=== PATIENT | male | born 1945 | race Caucasian/White ===

== ENCOUNTER 2017-08-27 14:19 | Outpatient (CLI) | payer MEDICARE, BC ==
[~2017-08-27 14:19] MED LIST: ASPIR-LOW81 MG PO; ASPIR-LOX325 MG PO; ATENOLOL25 MG PO; CATAPRES 0.1MG0.1 MG PO; FISH OIL1 IU PO; FOSINOPRIL SODI10 MG PO; GLYBURIDE MICRON3 MG PO; LEVITRA PO; LEVOTHYROXINE0.05 M1 PO; MICRO-K10 MEQ PO; NIFEDIPINE ER60 MG PO; ZOCOR80 MG PO; ZOLOFT50 MG PO
[2017-08-27 14:39] VITALS: BP 149/72; PULSE 81; TEMP 98
[2017-08-27 14:51] LABS: BASO % 0.6 % (0.0-2.0); EOS # 0.2 (0.0-0.7); EOS % 3.5 % (0-4.0); GRAN # 4.9 (1.4-6.5); GRAN % 71.2 % (42.2-75.2); HEMATOCRIT 25.4 % (42.0-52.0); HEMOGLOBIN 8.7 g/dl (13.5-18.0); LYMPH # 1.1 (1.2-3.4); MEAN CELL VOLUME 97 fl (80.0-100.0); MEAN CORPUSCULAR HEMOGLOBIN 33 pg (27.0-31.0); MEAN CORPUSCULAR HGB CONC 34 g/dl (33.0-37.0); MEAN PLATELET VOLUME 9.5 fl (7.4-10.4); MONO # 0.6 (0.1-0.6); MONO % 8.4 % (1.7-9.3); PLATELET COUNT 143 K/mm3 (130-400); RED BLOOD COUNT 2.63 M/mm3 (4.20-5.60); REDCELL DISTRIBUTION WIDTH-CV 13.2 % (11.5-14.5)
[2017-08-27] MEDS ORDERED: ALTACE 10MG TAB10 MG PO (15:20)
[2017-08-27] MEDS ORDERED: SYNTHROID0.112 MG/T PO (15:20)
[2017-08-27] MEDS ORDERED: ZOLOFT 25MG25 MG PO (15:22)
[2017-08-27] MEDS ORDERED: HYTRIN 5MG C5 MG/CAP PO (15:22)
[2017-08-27] MEDS ORDERED: ZYLOPRIM 300MG300 MG PO (15:23)
[2017-08-27] MEDS ORDERED: ZOCOR 80MG80 MG PO (15:23)
[2017-08-27] MEDS ORDERED: ALDACTONE 25MG25 M1 PO (15:24)
[2017-08-27] MEDS ORDERED: K-TAB10 PO (15:26)
[2017-08-27] MEDS ORDERED: ADALAT CC60 MG PO (15:27)
== END 2017-08-27 16:07 | disposition home or self-care (01) ==
LOC: EUO 14:19
PROVIDERS: Internal Medicine
DX: N18.5 Chronic kidney disease, stage 5 (principal); D63.1 Anemia in chronic kidney disease; Z80.42 Family history of malignant neoplasm of prostate; Z80.0 Family history of malignant neoplasm of digestive organs; F17.220 Nicotine dependence, chewing tobacco, uncomplicated
CPT/HCPCS: J0881

== ENCOUNTER → 2017-10-08 | Outpatient (CLI) | payer MEDICARE, BC ==
[~2017-10-08] MED LIST changes: +ADALAT CC60 MG PO; +ALDACTONE 25MG25 M1 PO; +ALTACE 10MG TAB10 MG PO; +HYTRIN 5MG C5 MG/CAP PO; +K-TAB10 PO; +SYNTHROID0.112 MG/T PO; +ZOCOR 80MG80 MG PO; +ZOLOFT 25MG25 MG PO; +ZYLOPRIM 300MG300 MG PO
== END ==
LOC: COL.VAS 08:57
DX: N18.5 Chronic kidney disease, stage 5 (principal)
CPT/HCPCS: G0365

== ENCOUNTER 2017-10-27 13:00 | Outpatient (RCR) | payer MEDICARE, BC ==
[2017-10-06 15:36] VITALS: BP 135/77; PULSE 64; TEMP 97.7
[2017-10-13 13:19] VITALS: BP 143/70; PULSE 52; TEMP 97.8
[2017-10-20 13:02] VITALS: BP 147/77; PULSE 57; TEMP 97.9
[~2017-10-27] VITALS: Ht 193 cm; Wt 91.1 kg
[2017-10-27 14:00] VITALS: BP 156/72; PULSE 59; TEMP 97.7
== END 2017-10-27 14:45 | disposition home or self-care (01) ==
LOC: EUO 13:00
DX: N18.5 Chronic kidney disease, stage 5 (principal); D63.1 Anemia in chronic kidney disease
CPT/HCPCS: J0881; J2916

== ENCOUNTER 2017-11-24 13:13 | Outpatient (CLI) | payer MEDICARE, BC ==
[~2017-11-24] VITALS: Ht 193 cm; Wt 89.0 kg
[2017-11-24 13:24] VITALS: BP 153/78; PULSE 58; TEMP 97.7
== END 2017-11-24 14:05 | disposition home or self-care (01) ==
LOC: EUO 13:13
DX: N18.5 Chronic kidney disease, stage 5 (principal); D63.1 Anemia in chronic kidney disease
CPT/HCPCS: J0881

== ENCOUNTER 2017-12-22 13:09 | Outpatient (CLI) | payer MEDICARE, BC ==
[~2017-12-22] VITALS: Ht 193 cm; Wt 96.0 kg
[2017-12-22 14:01] VITALS: BP 163/63; PULSE 72; TEMP 98.2
== END 2017-12-22 14:05 | disposition home or self-care (01) ==
LOC: EUO 13:09
DX: N18.5 Chronic kidney disease, stage 5 (principal); D63.1 Anemia in chronic kidney disease
CPT/HCPCS: J0881

== ENCOUNTER 2018-01-27 13:20 | Outpatient (CLI) | payer MEDICARE, BC ==
[2018-01-27 13:38] VITALS: BP 137/64; PULSE 65; TEMP 97.6
== END 2018-01-27 14:05 | disposition home or self-care (01) ==
LOC: EUO 13:20
DX: N18.5 Chronic kidney disease, stage 5 (principal); D63.1 Anemia in chronic kidney disease
CPT/HCPCS: J0881

== ENCOUNTER 2018-03-31 06:33 | Day surgery (SDC) | payer MEDICARE, BC ==
[~2018-03-31] VITALS: Ht 193 cm; Wt 87.0 kg
[~2018-03-31 06:33] MED LIST changes: +ALTACE 5MG5 MG PO; +ASPIRIN 81M81 MG/TA2 PO; +ATARAX 25MG25 MG/TAB PO; +BUMEX2 MG PO; +CORDARONE200 MG/TAB PO; +COREG 25MG25 MG/TAB PO; +COUMADIN 1MG1 MG/TAB PO; +COUMADIN 5MG5 MG/TAB PO; +HYTRIN 1MG C1 MG/CAP PO; +IMDUR 30MG30 MG/TAB PO; +LOPRESSOR 225 MG/TAB PO; +MASON NATURAL2000 IU PO; +NATURAL IRON65 MG PO; +NEURONTIN100 MG/CAP PO; +OMEGA-3 1000 MG1 CAP PO; +OSCAL 500 TAB500 MG PO; +ROLAIDS 675 MG-1 CT2 PO; +ZAROXOLYN 2.52.5 MG PO; +ZAROXOLYN5 MG PO; +ZOCOR 20MG20 MG PO
[2018-03-31 07:18] LABS: POTASSIUM 5.1 mmol/L (3.4-5.0)
[2018-03-31 07:19] LABS: INR 2.1 (0.8-3.0); PROTHROMBIN TIME 23.4 SECONDS (9.7-12.8)
[2018-03-31 07:52] LABS: THYROID STIMULATING HORMONE 6.63 uIU/mL (0.465-4.680)
[2018-03-31 08:18] VITALS: BP 128/81; PULSE 61; TEMP 97.5
[2018-03-31] MEDS ORDERED: LEVOXYL0.125 MG PO (08:26)
[2018-03-31] MEDS ORDERED: CALPHRON667 MG PO (08:30)
[2018-03-31] MEDS ORDERED: LOPRESSOR 225 MG/TAB PO (08:31)
[2018-03-31] MEDS ORDERED: COUMADIN 22.5 MG/TAB PO (08:32)
[2018-03-31] MEDS ORDERED: CEPHALEXIN500 M1 PO (09:40)
[2018-03-31 10:14] VITALS: BP 153/69; PULSE 117; TEMP 97.6
== END 2018-03-31 10:17 | disposition home or self-care (01) ==
LOC: COL.CAR 06:33
PROVIDERS: Internal Medicine Cardiovascular Disease
DX: I48.0 Paroxysmal atrial fibrillation (principal); I42.0 Dilated cardiomyopathy; I34.0 Nonrheumatic mitral (valve) insufficiency; I13.2 Hypertensive heart and chronic kidney disease with heart failure and with stage 5 chronic kidney disease, or end stage renal disease; N18.6 End stage renal disease; I50.23 Acute on chronic systolic (congestive) heart failure; I45.4 Nonspecific intraventricular block; Z79.01 Long term (current) use of anticoagulants; Z79.82 Long term (current) use of aspirin; Z87.891 Personal history of nicotine dependence; Z99.2 Dependence on renal dialysis

== ENCOUNTER 2018-05-04 22:34 | Inpatient (IN) | payer MEDICARE, BC ==
[~2018-05-04] VITALS: Ht 193 cm; Wt 92.8 kg
[~2018-05-04 22:34] MED LIST changes: +CALPHRON667 MG PO; +CEPHALEXIN500 M1 PO; +COUMADIN 22.5 MG/TAB PO; +LEVOXYL0.125 MG PO
[2018-05-04 23:25] LABS: BASO % 0.6 % (0.0-2.0); EOS # 0.2 (0.0-0.7); EOS % 2.4 % (0-4.0); GRAN # 4.8 (1.4-6.5); GRAN % 73.2 % (42.2-75.2); HEMATOCRIT 31.5 % (42.0-52.0); HEMOGLOBIN 10.3 g/dl (13.5-18.0); LYMPH # 0.9 (1.2-3.4); LYMPH % 13.7 % (20.0-51.0); MEAN CELL VOLUME 98 fl (80.0-100.0); MEAN CORPUSCULAR HEMOGLOBIN 32 pg (27.0-31.0); MEAN CORPUSCULAR HGB CONC 33 g/dl (33.0-37.0); MEAN PLATELET VOLUME 9.8 fl (7.4-10.4); MONO # 0.7 (0.1-0.6); MONO % 9.8 % (1.7-9.3); PLATELET COUNT 159 K/mm3 (130-400); RED BLOOD COUNT 3.23 M/mm3 (4.20-5.60); REDCELL DISTRIBUTION WIDTH-CV 19.5 % (11.5-14.5)
[2018-05-04 23:30] LABS: INR 1.6 (0.8-3.0); PROTHROMBIN TIME 18.1 SECONDS (9.7-12.8)
[2018-05-04 23:35] LABS: ALBUMIN 3.5 gm/dL (3.5-5.0); BILIRUBIN,TOTAL 0.9 mg/dL (0.0-1.0); CALCIUM 8.9 mg/dL (8.4-10.2); CREATININE, serum 3.17 mg/dL (0.66-1.25); POTASSIUM 4.2 mmol/L (3.4-5.0); TOTAL PROTEIN 6.9 gm/dL (6.4-8.2)
[2018-05-04 23:47] LABS: TROPONIN-I 0.061 ng/mL (0.000-0.034)
[2018-05-04] MEDS ORDERED: ELIQUIS 2.5 PO (23:57)
[2018-05-04] MEDS ORDERED: REGLAN 5MG T5 MG/TAB PO (23:57)
[2018-05-04] MEDS ORDERED: PROTONIX 40MG T40 MG PO (23:57)
[2018-05-05] VITALS (7 sets, daily range): BP systolic 133–164; BP diastolic 68–94; PULSE 52–82; TEMP 97.6–98.6
[2018-05-05 07:26] LABS: BASO # 0.1 (0.0-0.2); BASO % 0.7 % (0.0-2.0); EOS # 0.1 (0.0-0.7); EOS % 1.1 % (0-4.0); GRAN # 4.6 (1.4-6.5); GRAN % 61.3 % (42.2-75.2); HEMOGLOBIN 10.4 g/dl (13.5-18.0); LYMPH # 1.9 (1.2-3.4); MEAN CELL VOLUME 100 fl (80.0-100.0); MEAN CORPUSCULAR HEMOGLOBIN 31 pg (27.0-31.0); MEAN CORPUSCULAR HGB CONC 31 g/dl (33.0-37.0); MEAN PLATELET VOLUME 10.4 fl (7.4-10.4); MONO # 0.9 (0.1-0.6); MONO % 11.6 % (1.7-9.3); PLATELET COUNT 179 K/mm3 (130-400); RED BLOOD COUNT 3.32 M/mm3 (4.20-5.60); REDCELL DISTRIBUTION WIDTH-CV 19.9 % (11.5-14.5)
[2018-05-05 07:30] LABS: ALBUMIN 3.6 gm/dL (3.5-5.0); BILIRUBIN,TOTAL 0.8 mg/dL (0.0-1.0); CALCIUM 8.9 mg/dL (8.4-10.2); CREATININE, serum 3.59 mg/dL (0.66-1.25); POTASSIUM 4.5 mmol/L (3.4-5.0); TOTAL PROTEIN 6.9 gm/dL (6.4-8.2)
[2018-05-05 07:31] LABS: HEMATOCRIT 33.1 % (42.0-52.0)
[2018-05-05 07:54] LABS: TROPONIN-I 6 HR POST INITIAL 0.175 ng/mL (0.000-0.034)
[2018-05-06 05:21] VITALS: BP 157/91; PULSE 71; TEMP 98.6
[2018-05-06 07:05] LABS: BASO # 0.1 (0.0-0.2); BASO % 0.6 % (0.0-2.0); EOS # 0.4 (0.0-0.7); EOS % 5.3 % (0-4.0); GRAN # 4.6 (1.4-6.5); GRAN % 58.4 % (42.2-75.2); HEMOGLOBIN 10.8 g/dl (13.5-18.0); LYMPH % 24.5 % (20.0-51.0); MEAN CELL VOLUME 99 fl (80.0-100.0); MEAN CORPUSCULAR HEMOGLOBIN 32 pg (27.0-31.0); MEAN CORPUSCULAR HGB CONC 32 g/dl (33.0-37.0); MEAN PLATELET VOLUME 10.3 fl (7.4-10.4); MONO # 0.9 (0.1-0.6); MONO % 10.8 % (1.7-9.3); PLATELET COUNT 172 K/mm3 (130-400); RED BLOOD COUNT 3.42 M/mm3 (4.20-5.60); REDCELL DISTRIBUTION WIDTH-CV 19.8 % (11.5-14.5)
[2018-05-06 07:11] LABS: HEMATOCRIT 33.7 % (42.0-52.0)
[2018-05-06 07:13] LABS: CALCIUM 8.9 mg/dL (8.4-10.2); CREATININE, serum 3.47 mg/dL (0.66-1.25); POTASSIUM 4.3 mmol/L (3.4-5.0)
[2018-05-06 07:23] LABS: TROPONIN-I 0.222 ng/mL (0.000-0.034)
[2018-05-06 08:06] VITALS: BP 141/80; PULSE 77; TEMP 98
[2018-05-06] MEDS ORDERED: ELIQUIS 2.5 PO (11:07)
[2018-05-06 11:58] VITALS: BP 132/88; PULSE 66; TEMP 98
== END 2018-05-06 17:35 | disposition home or self-care (01) | DRG 280 ==
LOC: COL.ER 22:34 → MEDICAL 05-05 00:17 → COL.ER 05-05 00:17 → MEDICAL 05-05 01:20
PROVIDERS: Emergency Medicine; Internal Medicine
PROC: 5A1D70Z Performance of Urinary Filtration, Intermittent, Less than 6 Hours Per Day (ICD-10-PCS; principal; 2018-05-05)
PROC: 5A1D70Z Performance of Urinary Filtration, Intermittent, Less than 6 Hours Per Day (ICD-10-PCS; 2018-05-06)
DX: I13.2 Hypertensive heart and chronic kidney disease with heart failure and with stage 5 chronic kidney disease, or end stage renal disease (principal); I50.23 Acute on chronic systolic (congestive) heart failure; I21.A1 Myocardial infarction type 2; N18.6 End stage renal disease; E11.22 Type 2 diabetes mellitus with diabetic chronic kidney disease; D63.1 Anemia in chronic kidney disease; I48.0 Paroxysmal atrial fibrillation; E11.21 Type 2 diabetes mellitus with diabetic nephropathy; Z79.01 Long term (current) use of anticoagulants

== ENCOUNTER 2018-05-10 08:54 | Day surgery (SDC) | payer MEDICARE, BC ==
[2018-05-10] VITALS (11 sets, daily range): BP systolic 117–154; BP diastolic 60–85; PULSE 56–62; TEMP 97.3–97.6
[~2018-05-10] VITALS: Ht 193 cm; Wt 83.0 kg
[~2018-05-10 08:54] MED LIST changes: +ELIQUIS 2.5 PO; +PROTONIX 40MG T40 MG PO; +REGLAN 5MG T5 MG/TAB PO
[2018-05-10 09:59] LABS: HEMOGLOBIN 11.1 g/dl (13.5-18.0); MEAN CELL VOLUME 100 fl (80.0-100.0); MEAN CORPUSCULAR HEMOGLOBIN 32 pg (27.0-31.0); MEAN CORPUSCULAR HGB CONC 32 g/dl (33.0-37.0); MEAN PLATELET VOLUME 10.5 fl (7.4-10.4); PLATELET COUNT 186 K/mm3 (130-400); RED BLOOD COUNT 3.48 M/mm3 (4.20-5.60); REDCELL DISTRIBUTION WIDTH-CV 20.3 % (11.5-14.5)
[2018-05-10 10:04] LABS: HEMATOCRIT 34.7 % (42.0-52.0)
[2018-05-10 10:06] LABS: INR 1.3 (0.8-3.0); PROTHROMBIN TIME 15.2 SECONDS (9.7-12.8)
[2018-05-10 10:12] LABS: CALCIUM 9.4 mg/dL (8.4-10.2); POTASSIUM 4.6 mmol/L (3.4-5.0)
[2018-05-10 10:17] LABS: CREATININE, serum 4.34 mg/dL (0.66-1.25)
== END 2018-05-10 16:00 | disposition home or self-care (01) ==
LOC: COL.CAR 08:54
PROVIDERS: Internal Medicine Cardiovascular Disease
DX: I42.8 Other cardiomyopathies (principal); I48.0 Paroxysmal atrial fibrillation; I13.2 Hypertensive heart and chronic kidney disease with heart failure and with stage 5 chronic kidney disease, or end stage renal disease; N18.6 End stage renal disease; E78.5 Hyperlipidemia, unspecified; I50.23 Acute on chronic systolic (congestive) heart failure; I44.7 Left bundle-branch block, unspecified; R94.39 Abnormal result of other cardiovascular function study; I08.1 Rheumatic disorders of both mitral and tricuspid valves; I27.20 Pulmonary hypertension, unspecified; Z79.01 Long term (current) use of anticoagulants; Z79.82 Long term (current) use of aspirin; Z87.891 Personal history of nicotine dependence
CPT/HCPCS: J1644; J2250; J3010; Q9967

== ENCOUNTER 2018-06-08 06:22 | Outpatient (CLI) | payer MEDICARE, BC ==
[~2018-06-08] VITALS: Ht 193.1 cm; Wt 83.8 kg
[2018-06-08] VITALS (10 sets, daily range): BP systolic 120–152; BP diastolic 83–102; PULSE 64–70
== END 2018-06-08 12:38 | disposition home or self-care (01) ==
LOC: COL.CAR 06:22
DX: T82.590A Other mechanical complication of surgically created arteriovenous fistula, initial encounter (principal); I12.0 Hypertensive chronic kidney disease with stage 5 chronic kidney disease or end stage renal disease; E11.22 Type 2 diabetes mellitus with diabetic chronic kidney disease; N18.6 End stage renal disease; I48.91 Unspecified atrial fibrillation; Z99.2 Dependence on renal dialysis
CPT/HCPCS: J1644; J2250; J3010; Q9967

== ENCOUNTER → 2018-09-10 | Outpatient (CLI) | payer MEDICARE, BC | LOC: COL.RAD 15:56 | DX: N18.6 End stage renal disease (principal); I51.7 Cardiomegaly; J18.1 Lobar pneumonia, unspecified organism; R09.89 Other specified symptoms and signs involving the circulatory and respiratory systems; Z99.2 Dependence on renal dialysis ==

== ENCOUNTER → 2018-10-03 | Outpatient (CLI) | payer MEDICARE, BC ==
[~2018-10-03] VITALS: Ht 193.1 cm; Wt 81.2 kg
[2018-10-03 07:38] VITALS: BP 150/73; PULSE 69
--- NOTE | 2018-10-03 07:44 | NUR ---
dc instructions given to .
[2018-10-03 08:08] VITALS: BP 141/66; PULSE 85
== END ==
LOC: COL.RAD 07:15
DX: L98.8 Other specified disorders of the skin and subcutaneous tissue (principal)

== ENCOUNTER → 2020-01-17 | Outpatient (CLI) | payer MEDICARE, BC | LOC: ZCOL.LAB 14:47 | DX: Z20.828 Contact with and (suspected) exposure to other viral communicable diseases (principal) ==

== ENCOUNTER → 2020-08-13 | Outpatient (CLI) | payer MEDICARE, BC | LOC: COL.PUL 10:41 | DX: R06.02 Shortness of breath (principal); T50.904A Poisoning by unspecified drugs, medicaments and biological substances, undetermined, initial encounter ==

== ENCOUNTER → 2020-08-21 | Outpatient (CLI) | payer MEDICARE, BC | LOC: COL.PUL 11:30 | DX: R06.02 Shortness of breath (principal); T50.904A Poisoning by unspecified drugs, medicaments and biological substances, undetermined, initial encounter ==

== ENCOUNTER → 2020-11-06 | Outpatient (CLI) | payer MEDICARE, BC ==
[~2020-11-06] MED LIST changes: +RENVELA800 MG PO; +[UNRECOGNIZED DRUG - OTHER] PO
== END ==
LOC: COL.RAD 07:41
DX: N26.1 Atrophy of kidney (terminal) (principal); N20.0 Calculus of kidney; K76.89 Other specified diseases of liver; Z95.0 Presence of cardiac pacemaker
CPT/HCPCS: Q9967

== ENCOUNTER 2021-01-23 13:00 | Emergency (ER) | payer MEDICARE, BC ==
[~2021-01-23] VITALS: Ht 193 cm; Wt 95.5 kg
[~2021-01-23 13:00] MED LIST changes: +TOPROL XL 25MG25 MG PO
[2021-01-23 13:01] VITALS: BP 174/89; TEMP 98.7
[2021-01-23] MEDS ORDERED: CEPHALEXIN500 M1 PO (14:53)
[2021-01-23 15:21] VITALS: PULSE 60
== END 2021-01-23 15:18 | disposition home or self-care (01) ==
LOC: COL.ER 13:00
DX: S81.811A Laceration without foreign body, right lower leg, initial encounter (principal); S51.011A Laceration without foreign body of right elbow, initial encounter; S81.812A Laceration without foreign body, left lower leg, initial encounter; S51.812A Laceration without foreign body of left forearm, initial encounter; I48.91 Unspecified atrial fibrillation; I12.9 Hypertensive chronic kidney disease with stage 1 through stage 4 chronic kidney disease, or unspecified chronic kidney disease; E11.22 Type 2 diabetes mellitus with diabetic chronic kidney disease; N18.9 Chronic kidney disease, unspecified; Z87.891 Personal history of nicotine dependence; Z79.01 Long term (current) use of anticoagulants; Z99.2 Dependence on renal dialysis; Z23 Encounter for immunization; Z79.899 Other long term (current) drug therapy; W01.0XXA Fall on same level from slipping, tripping and stumbling without subsequent striking against object, initial encounter

== ENCOUNTER 2021-03-06 07:23 | Outpatient (CLI) | payer MEDICARE, BC ==
[~2021-03-06] VITALS: Ht 193.1 cm; Wt 94.6 kg
[2021-03-06 08:21] LABS: MEAN CELL VOLUME 108 fl (80.0-100.0); MEAN CORPUSCULAR HGB CONC 34 g/dl (33.0-37.0); MEAN PLATELET VOLUME 9.3 fl (7.4-10.4); PLATELET COUNT 155 K/mm3 (130-400); REDCELL DISTRIBUTION WIDTH-CV 14.2 % (11.5-14.5)
[2021-03-06 08:24] LABS: HEMOGLOBIN 9.5 g/dl (13.5-18.0); MEAN CORPUSCULAR HEMOGLOBIN 37 pg (27.0-31.0)
[2021-03-06 08:30] LABS: INR 1.3 (0.8-3.0); PROTHROMBIN TIME 14.2 SECONDS (9.7-12.8)
[2021-03-06 08:32] LABS: CALCIUM 9.8 mg/dL (8.4-10.2); CREATININE, serum 5.46 (0.66-1.25); POTASSIUM 4.5 mmol/L (3.4-5.0)
[2021-03-06] MEDS ORDERED: PACERONE200 MG PO (09:02)
[2021-03-06] MEDS ORDERED: ALTACE 10MG TAB10 MG PO (09:08)
[2021-03-06 09:18] VITALS: BP 153/85; PULSE 61; TEMP 98.4
[2021-03-06 09:38] VITALS: BP 129/64; PULSE 60
--- NOTE | 2021-03-06 09:43 | NUR ---
Report from Javy Gordon
[2021-03-06 09:45] VITALS: BP 135/68; PULSE 60
[2021-03-06 10:00] VITALS: BP 143/68; PULSE 60
[2021-03-06 10:15] VITALS: BP 144/72; PULSE 66
[2021-03-06 10:30] VITALS: BP 147/75; PULSE 66
--- NOTE | 2021-03-06 11:15 | NUR ---
Discharge instructions given to pt.Pt verbalizes understanding.INT removed,catheter tip intact.Pt escorted out via wheelchair by this nurse.
== END 2021-03-06 12:43 | disposition home or self-care (01) ==
LOC: COL.RAD 07:23
PROVIDERS: Internal Medicine Cardiovascular Disease
DX: I10 Essential (primary) hypertension (principal); I48.91 Unspecified atrial fibrillation; Z86.79 Personal history of other diseases of the circulatory system
CPT/HCPCS: J2704; J7030

== ENCOUNTER → 2021-03-10 | Outpatient (CLI) | payer MEDICARE, BC ==
[~2021-03-10] MED LIST changes: +FOLIC ACID 11 MG/TA1 PO; +PACERONE200 MG PO; +VITAMIN B1 50 MG PO; +VITAMIN B12 781 TAB PO
== END ==
LOC: COL.RAD 06:42
DX: I50.9 Heart failure, unspecified (principal); J90 Pleural effusion, not elsewhere classified; N20.0 Calculus of kidney; N28.1 Cyst of kidney, acquired; N26.1 Atrophy of kidney (terminal)
CPT/HCPCS: Q9967

== ENCOUNTER 2021-05-06 11:55 | Day surgery (SDC) | payer MEDICARE, BC ==
[~2021-05-06] VITALS: Ht 193 cm; Wt 89.5 kg
[~2021-05-06 11:55] MED LIST changes: -FOLIC ACID 11 MG/TA1 PO; -VITAMIN B1 50 MG PO; -VITAMIN B12 781 TAB PO
[2021-05-06 13:20] VITALS: BP 143/64; PULSE 64; TEMP 98.2
[2021-05-06] MEDS ORDERED: VITAMIN B12 781 TAB PO (13:30)
[2021-05-06] MEDS ORDERED: FOLIC ACID 11 MG/TA1 PO (13:31)
[2021-05-06] MEDS ORDERED: VITAMIN B1 50 MG PO (13:31)
[2021-05-06 13:32] LABS: CALCIUM 9.7 mg/dL (8.4-10.2); CREATININE, serum 5.77 (0.66-1.25); POTASSIUM 4.1 mmol/L (3.4-5.0)
[2021-05-06 16:10] VITALS: BP 148/70; PULSE 66; TEMP 97.6
--- NOTE | 2021-05-06 16:10 | NUR ---
PATIENT BROUGHT DOWN TO BED 1 VIA CART. PLACED ON MONITORS, VITAL SIGNS STABLE. IV INFUSING TO RIGHT HAND. PATIENT DENIES PAIN OR NAUSEA. REQUESTS MUFFIN AND DIET SODA. REMAINS AT BEDSIDE. CALL CORCORAN WITHIN REACH. WILL CONTINUE TO MONITOR.
[2021-05-06 16:25] VITALS: BP 154/64; PULSE 70
--- NOTE | 2021-05-06 16:25 | NUR ---
TOLERATING FOOD AND DRINK WITHOUT DIFFICULTY. WILL CONTINUE TO MONITOR.
[2021-05-06 16:40] VITALS: BP 151/68; PULSE 69
--- NOTE | 2021-05-06 16:40 | NUR ---
PATIENT AMBULATED TO BATHROOM, BLOODY URINE NOTED. PATIENT EDUCATED ON COLOR. VITAL SIGNS STABLE. REPORT GIVEN TO KAREEM LESLIE TO RESUME CARE. DR. ESCALERA CALLED, NO ANSWER. NEEDS TO SEE PATIENT BEFORE DISCHARGE.
--- NOTE | 2021-05-06 17:00 | NUR ---
Received call from Dr. Brown and patient maybe discharged to home.
--- NOTE | 2021-05-06 17:10 | NUR ---
INT needle discontinued and site is free of redness and swelling. Given dismissal instructions and voices understanding of these. Dresses self.
--- NOTE | 2021-05-06 17:15 | NUR ---
Patient dismissed to home driven by spouse and taken to the front door per wheelchair and assisted into car with instruction in hand.
[2021-05-06 18:22] VITALS: BP 148/70; PULSE 66; TEMP 97.6
== END 2021-05-06 17:15 | disposition home or self-care (01) ==
LOC: SDCO 11:55
PROVIDERS: Nurse Anesthetist, Certified Registered
DX: N20.1 Calculus of ureter (principal); R31.0 Gross hematuria; I48.91 Unspecified atrial fibrillation; K21.9 Gastro-esophageal reflux disease without esophagitis; E11.9 Type 2 diabetes mellitus without complications; E78.5 Hyperlipidemia, unspecified; E11.22 Type 2 diabetes mellitus with diabetic chronic kidney disease; E78.00 Pure hypercholesterolemia, unspecified; E07.9 Disorder of thyroid, unspecified; D64.9 Anemia, unspecified; I13.2 Hypertensive heart and chronic kidney disease with heart failure and with stage 5 chronic kidney disease, or end stage renal disease; I50.9 Heart failure, unspecified; M10.9 Gout, unspecified; N18.6 End stage renal disease; F32.9 Major depressive disorder, single episode, unspecified; F41.9 Anxiety disorder, unspecified; Z79.01 Long term (current) use of anticoagulants; Z79.899 Other long term (current) drug therapy; Z95.0 Presence of cardiac pacemaker; Z87.891 Personal history of nicotine dependence; Z90.89 Acquired absence of other organs; Z79.890 Hormone replacement therapy
CPT/HCPCS: C1769; J0690; J2704; J3010; J7030; Q9967

== ENCOUNTER 2021-09-14 12:27 | Inpatient (IN) | payer MEDICARE, BC ==
[~2021-09-14] VITALS: Ht 185.4 cm; Wt 87.9 kg
[~2021-09-14 12:27] MED LIST changes: +FOLIC ACID 11 MG/TA1 PO; +VITAMIN B1 50 MG PO; +VITAMIN B12 781 TAB PO
[2021-09-14 13:29] VITALS: BP 130/64; PULSE 63; TEMP 98.1
[2021-09-14] MEDS ORDERED: ASPIRIN 81M81 MG/TA2 PO (14:16)
[2021-09-14] MEDS ORDERED: REGLAN 5MG T5 MG/TAB PO (14:17)
[2021-09-14] MEDS ORDERED: ALDACTONE 25MG25 M1 PO (14:18)
[2021-09-14] MEDS ORDERED: LASIX 80MG TABL80 MG PO ×2 (14:19→14:20)
[2021-09-14] MEDS ORDERED: PLAVIX 75MG TAB75 MG PO (14:20)
[2021-09-14 14:22] LABS: BASO % 0.7 % (0.0-2.0); EOS # 0.1 K/mm3 (0.0-0.7); EOS % 2.4 % (0.0-4.0); GRAN # 4.1 K/mm3 (1.4-6.5); GRAN % 73.7 % (42.2-75.2); HEMATOCRIT 32.9 % (42.0-52.0); HEMOGLOBIN 10.3 g/dl (13.5-18.0); LYMPH # 0.6 K/mm3 (1.2-3.4); LYMPH % 11.3 % (20.0-51.0); MEAN CELL VOLUME 106 fl (80.0-100.0); MEAN CORPUSCULAR HEMOGLOBIN 33 pg (27-31); MEAN CORPUSCULAR HGB CONC 31 g/dl (33.0-37.0); MEAN PLATELET VOLUME 9.9 fl (7.4-10.4); MONO # 0.6 K/mm3 (0.1-0.6); MONO % 11.7 % (1.7-9.3); PLATELET COUNT 151 K/mm3 (130-400); RED BLOOD COUNT 3.11 M/mm3 (4.20-5.60); REDCELL DISTRIBUTION WIDTH-CV 15.8 % (11.5-14.5)
[2021-09-14 14:32] LABS: INR 1.2 (0.8-3.0); PROTHROMBIN TIME 13.1 SECONDS (9.7-12.8)
[2021-09-14 14:40] LABS: ALBUMIN 3.7 gm/dL (3.4-4.8); BILIRUBIN,TOTAL 0.8 mg/dL (0.2-1.2); CREATININE, serum 2.9 mg/dL (0.72-1.25); POTASSIUM 4.3 mmol/L (3.5-4.5); TOTAL PROTEIN 6.9 gm/dL (6.2-8.1)
[2021-09-14 14:59] LABS: TSH w REFLEX 3.845 uIU/mL (0.350-4.940)
[2021-09-14 15:52] VITALS: BP 129/65; PULSE 68; TEMP 98.2
[2021-09-14 20:38] VITALS: BP 124/68; PULSE 73; TEMP 98.3
[2021-09-15] VITALS (7 sets, daily range): BP systolic 135–156; BP diastolic 70–82; PULSE 71–78; TEMP 97.1–98
[2021-09-15 07:10] LABS: BASO # 0.1 K/mm3 (0.0-0.2); BASO % 0.8 % (0.0-2.0); EOS # 0.1 K/mm3 (0.0-0.7); EOS % 0.7 % (0.0-4.0); GRAN # 7.6 K/mm3 (1.4-6.5); GRAN % 74.9 % (42.2-75.2); HEMATOCRIT 38.7 % (42.0-52.0); LYMPH # 1.3 K/mm3 (1.2-3.4); LYMPH % 12.9 % (20.0-51.0); MEAN CELL VOLUME 108 fl (80.0-100.0); MEAN CORPUSCULAR HEMOGLOBIN 35 pg (27-31); MEAN CORPUSCULAR HGB CONC 32 g/dl (33.0-37.0); MEAN PLATELET VOLUME 10.3 fl (7.4-10.4); MONO # 1.1 K/mm3 (0.1-0.6); MONO % 10.4 % (1.7-9.3); PLATELET COUNT 235 K/mm3 (130-400); RED BLOOD COUNT 3.59 M/mm3 (4.20-5.60); REDCELL DISTRIBUTION WIDTH-CV 16.1 % (11.5-14.5)
[2021-09-15 07:25] LABS: HEMOGLOBIN 12.4 g/dl (13.5-18.0)
[2021-09-15 07:28] LABS: ALBUMIN 4.1 gm/dL (3.4-4.8); CALCIUM 9.9 mg/dL (8.4-10.2); CREATININE, serum 4.45 mg/dL (0.72-1.25); PHOSPHOROUS 3.7 mg/dL (2.3-4.7); POTASSIUM 4.7 mmol/L (3.5-4.5)
[2021-09-16 04:17] VITALS: BP 131/73; PULSE 73; TEMP 97.8
[2021-09-16 06:56] LABS: BASO % 0.4 % (0.0-2.0); EOS % 0.3 % (0.0-4.0); GRAN # 7.2 K/mm3 (1.4-6.5); GRAN % 78.7 % (42.2-75.2); HEMOGLOBIN 11.7 g/dl (13.5-18.0); LYMPH # 0.9 K/mm3 (1.2-3.4); LYMPH % 9.9 % (20.0-51.0); MEAN CELL VOLUME 105 fl (80.0-100.0); MEAN CORPUSCULAR HEMOGLOBIN 34 pg (27-31); MEAN CORPUSCULAR HGB CONC 33 g/dl (33.0-37.0); MEAN PLATELET VOLUME 10.5 fl (7.4-10.4); MONO # 0.9 K/mm3 (0.1-0.6); MONO % 10.2 % (1.7-9.3); PLATELET COUNT 174 K/mm3 (130-400); RED BLOOD COUNT 3.42 M/mm3 (4.20-5.60); REDCELL DISTRIBUTION WIDTH-CV 16.3 % (11.5-14.5)
[2021-09-16 07:19] LABS: ALBUMIN 3.8 gm/dL (3.4-4.8); CALCIUM 9.9 mg/dL (8.4-10.2); CREATININE, serum 5.76 mg/dL (0.72-1.25); POTASSIUM 5.4 mmol/L (3.5-4.5)
[2021-09-16 08:10] VITALS: BP 123/71; PULSE 72; TEMP 97.6
[2021-09-16 08:21] VITALS: BP 119/63; PULSE 71; TEMP 97.7
[2021-09-16 11:46] VITALS: BP 138/78; PULSE 68; TEMP 97.9
[2021-09-16 16:27] VITALS: BP 131/64; PULSE 62; TEMP 97.4
[2021-09-16] MEDS ORDERED: TOPROL XL 25MG25 MG PO (18:02)
[2021-09-16] MEDS ORDERED: ALTACE 2.5MG T2.5 MG PO (18:03)
[2021-09-16] MEDS ORDERED: FLOMAX 0.40.4 MG/CAP PO (18:04)
[2021-09-16 19:30] VITALS: BP 140/71; PULSE 69; TEMP 97.7
[2021-09-17 00:06] VITALS: BP 126/66; PULSE 70; TEMP 97.8
[2021-09-17 03:17] VITALS: BP 135/71; PULSE 58; TEMP 97.8
[2021-09-17 06:09] LABS: BASO # 0.1 K/mm3 (0.0-0.2); BASO % 0.9 % (0.0-2.0); EOS # 0.2 K/mm3 (0.0-0.7); GRAN # 3.9 K/mm3 (1.4-6.5); GRAN % 72.1 % (42.2-75.2); HEMOGLOBIN 10.4 g/dl (13.5-18.0); LYMPH # 0.6 K/mm3 (1.2-3.4); MEAN CELL VOLUME 106 fl (80.0-100.0); MEAN CORPUSCULAR HEMOGLOBIN 34 pg (27-31); MEAN CORPUSCULAR HGB CONC 32 g/dl (33.0-37.0); MEAN PLATELET VOLUME 9.7 fl (7.4-10.4); MONO # 0.6 K/mm3 (0.1-0.6); MONO % 11.6 % (1.7-9.3); PLATELET COUNT 136 K/mm3 (130-400); RED BLOOD COUNT 3.09 M/mm3 (4.20-5.60); REDCELL DISTRIBUTION WIDTH-CV 16.7 % (11.5-14.5)
[2021-09-17 06:11] LABS: ALBUMIN 3.4 gm/dL (3.4-4.8); CALCIUM 9.6 mg/dL (8.4-10.2); CREATININE, serum 4.59 mg/dL (0.72-1.25); PHOSPHOROUS 3.1 mg/dL (2.3-4.7); POTASSIUM 4.3 mmol/L (3.5-4.5)
[2021-09-17 06:21] LABS: HEMATOCRIT 32.8 % (42.0-52.0)
[2021-09-17 07:53] VITALS: BP 159/77; PULSE 78; TEMP 98
== END 2021-09-17 13:26 | disposition home or self-care (01) | DRG 291 ==
LOC: SURG 12:27
PROVIDERS: ADMIT Internal Medicine Nephrology
DX: I13.2 Hypertensive heart and chronic kidney disease with heart failure and with stage 5 chronic kidney disease, or end stage renal disease (principal); N18.6 End stage renal disease; I50.23 Acute on chronic systolic (congestive) heart failure; E11.22 Type 2 diabetes mellitus with diabetic chronic kidney disease; E03.9 Hypothyroidism, unspecified; D63.1 Anemia in chronic kidney disease; D50.9 Iron deficiency anemia, unspecified; M10.9 Gout, unspecified; R62.7 Adult failure to thrive; E11.43 Type 2 diabetes mellitus with diabetic autonomic (poly)neuropathy; K31.84 Gastroparesis; R41.3 Other amnesia; I08.1 Rheumatic disorders of both mitral and tricuspid valves; R63.4 Abnormal weight loss; Z95.810 Presence of automatic (implantable) cardiac defibrillator; Z79.82 Long term (current) use of aspirin; Z87.891 Personal history of nicotine dependence; Z20.822 Contact with and (suspected) exposure to COVID-19; Z23 Encounter for immunization
CPT/HCPCS: J1644; J7030; Q9967

== ENCOUNTER 2024-03-08 07:18 | Inpatient (IN) | payer MEDICARE, BC ==
[~2024-03-08] VITALS: Ht 193 cm; Wt 100.0 kg
[2024-03-08] VITALS (8 sets, daily range): BP systolic 139–168; BP diastolic 67–79; PULSE 75–79; TEMP 97.7–98.9
[~2024-03-08 07:18] MED LIST changes: +ALTACE 2.5MG T2.5 MG PO; +B-121000 MCG PO; +DECADRON6 MG PO; +DOXYCYCLINE 10100 MG PO; +FLOMAX 0.40.4 MG/CAP PO; -FOLIC ACID 11 MG/TA1 PO; +FOLIC ACID0.4 MG PO; +LASIX 80MG TABL80 MG PO; +LEVAQUIN 5500 MG/TA1 PO; -LEVOXYL0.125 MG PO; +LEVOXYL0.175 MG PO; +MEDROL 4MG DOSPA4 MG PO; +NORCO 325 MG-51 TAB PO; +PHOSLO667 MG PO; +PLAVIX 75MG TAB75 MG PO; +RT Anoro Ellipta IH; +SENNA-S 50 MG-81 TAB PO; +SPIRIVA RE2.5 MCG/Ac IH; -VITAMIN B12 781 TAB PO
[2024-03-08] MEDS ORDERED: Albuterol/Ipratropium 3 MG-0.5 MG/3 ML Neb Soln IH ONE ×2 (07:45)
[2024-03-08 07:47] LABS: ARTERIAL BLD GAS O2 SATURATION 98.3 % (92-100); ARTERIAL BLD GAS TCO2 CT 23.8; ARTERIAL BLOOD GAS BASE EXCESS -2.9 (-2-2); ARTERIAL BLOOD GAS HCO3 22.6 meq/L (22-26); ARTERIAL BLOOD GAS PCO2 41.6 mmHg (35-45); ARTERIAL BLOOD GAS PO2 126.8 mmHg (80-100); ARTERIAL BLOOD GAS pH 7.35 (7.35-7.45)
[2024-03-08] MEDS ORDERED: Doxycycline Monohydrate 100 MG CAP PO ONE (09:15)
[2024-03-08] MEDS ORDERED: Cefepime 2 G in Water For Injection,Sterile 20 ML IV ONE (09:15)
[2024-03-08] MEDS ORDERED: methylPREDNISolone Sod Succ 125 MG/2 ML VIAL IV ONE (09:15)
[2024-03-08] MEDS ORDERED: Doxycycline Monohydrate 100 MG CAP PO SCH ×2 (10:56→21:00)
[2024-03-08] MEDS ORDERED: Polyethylene Glycol 3350 17 GM PDS PO PRN (11:00)
[2024-03-08] MEDS ORDERED: Acetaminophen 325 MG TAB PO PRN (11:00)
[2024-03-08] MEDS ORDERED: Docusate Sodium 100 MG CAP PO PRN (11:00)
[2024-03-08] MEDS ORDERED: Ondansetron 4 MG/2 ML VIAL IV PRN (11:00)
[2024-03-08] MEDS ORDERED: REGLAN 10MG10 MG/TAB PO (12:04)
[2024-03-08] MEDS ORDERED: DULCOLAX STOOL100 MG PO (12:05)
[2024-03-08] MEDS ORDERED: AMBIEN 5MG TABLE5 MG PO (12:05)
--- NOTE | 2024-03-08 12:30 | NUR ---
PT UP TO THE FLOOR AT THIS TIME, A/O X4, NO PAIN BUT EXTREME FATIGUE. PT ON 1L OXY MASK, SHALLOW AND LABORED BREATHING. AT BEDSIDE, 2 ASSIST FOR TRANSFER WITH WEAK GAIT. PLANNING FOR DIALYSIS TODAY. AIVS NOTIFIED OF ORDER FOR PICC LINE PLACEMENT. FAMILY DECLINED PLACEMENT. NO NEEDS AT THIS TIME. WILL CONTINUE TO MONITOR.
[2024-03-08] MEDS ORDERED: Cefepime 1 G in Water For Injection,Sterile 10 ML IV SCH (13:00)
[2024-03-08] MEDS ORDERED: Glucagon 1 MG VIAL IM PRN (13:30)
[2024-03-08] MEDS ORDERED: Dextrose 50% Water 25 GM/50 ML SYRINGE IV PRN (13:30)
[2024-03-08] MEDS ORDERED: Dextrose (Glucose) 15 GM (4 x 3.75 GM) Chewable TABLET PACK PO PRN (13:30)
[2024-03-08] MEDS ORDERED: PRILOCAINE TP ONE (14:15)
[2024-03-08] MEDS ORDERED: LIDOCAINE TP ONE (14:15)
[2024-03-08] MEDS ORDERED: Umeclidinium/Vilanterol 62.5-25 MCG INHALATION/INHALER IH SCH (15:14)
[2024-03-08] MEDS ORDERED: NS 1,000 ML IV SCH (15:15)
[2024-03-08] MEDS ORDERED: Heparin 1,000 UNITS/ML 10 ML Multi-Dose VIAL IV SCH (15:15)
[2024-03-08] MEDS ORDERED: Heparin 5,000 UNITS/ML 1 ML VIAL SQ SCH (16:00)
[2024-03-08] MEDS ORDERED: Insulin Lispro (HumaLOG) SQ SCH (17:00)
[2024-03-08] MEDS ORDERED: Sevelamer Carbonate 800 MG TAB PO SCH (17:00)
--- NOTE | 2024-03-08 18:40 | NUR ---
PT BACK TO ROOM FROM DIALYSIS AT THIS TIME. PUT MORE ALERT THAN ON ADMISSION, 3 KILOS REMOVED IN DIALYSIS, PT NOW ON RA TOLERATING DEIT WELL. PT CONTINUES WITH WET COUGH. DR. JOEL AT BEDSIDE. UPDATED. WILL CONTINUE TO MONITOR.
[2024-03-08] MEDS ORDERED: Formoterol Neb Soln 20 MCG/2 ML UD IH SCH (19:00)
[2024-03-08] MEDS ORDERED: Budesonide Neb Susp 0.25 MG/2 ML AMP IH SCH (19:00)
--- NOTE | 2024-03-08 19:39 | NUR ---
Bedside report received from ANUJ Esparza. Pt resting in bed watching TV with no complaints. Call light within reach.
[2024-03-08] MEDS ORDERED: Albuterol/Ipratropium 3 MG-0.5 MG/3 ML Neb Soln IH SCH (20:00)
[2024-03-08] MEDS ORDERED: dexAMETHasone 10 MG/ML VIAL IV SCH (21:00)
[2024-03-08] MEDS ORDERED: Atorvastatin 20 MG TAB PO SCH (21:00)
--- NOTE | 2024-03-08 22:21 | NUR ---
Shift assessment completed. VSS. Pt resting in bed watching TV. Pt coughing multiple times with no sputum production. INT to RAC patent with no swelling, redness, or drainage. Pt denies pain at this time rating 0/10. Pt has no request. Call light within reach and fall precautions in place.
[2024-03-09] VITALS (11 sets, daily range): BP systolic 121–158; BP diastolic 63–89; PULSE 70–76; TEMP 97.1–99
[2024-03-09] MEDS ORDERED: Levothyroxine 0.1 MG,Levothyroxine 0.075 MG PO SCH (07:00)
[2024-03-09] MEDS ORDERED: Amiodarone 200 MG TAB PO SCH (09:00)
[2024-03-09] MEDS ORDERED: Furosemide 80 MG TAB PO SCH (09:00)
[2024-03-09] MEDS ORDERED: Sennosides/Docusate 8.6-50 MG TAB PO SCH (09:00)
[2024-03-09] MEDS ORDERED: Cefepime 1 G in Water For Injection,Sterile 10 ML IV SCH (13:00)
--- NOTE | 2024-03-09 14:15 | NUR ---
chemical plant worker met with pt and his , Nicky [phone] to discuss discharge planning. reports they live together in [place]. He sees Dr. Morgan and obtains medications from [facility] with no difficulties. He reports to need some help with ADLS and uses a rolator and grab bars for DME. SW does not have a DPOA-HC on file, only a living will. SW advised to bring it in if she obtains it. SW discussed PT/OT pending and discussed rehab or HH options. SW notes OT later assessed pt and suggested Home Health. SW met with pt and his to provide Medicare.gov list. SW provided information on this and home bound criteria. folded this up and placed in her purse. SW advised they can always follow up on this with their PCP, if they decide to after the hospital stay. Discharge Plan: home
--- NOTE | 2024-03-09 14:24 | NUR ---
D: Upholstery Cutter stopped by room on rounds. A: Pt was resting and content with by his side. Pt has no needs right now. Pt appreciated the visit. 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 Upholstery Cutter will follow up as needed.
[2024-03-09] MEDS ORDERED: Heparin 1,000 UNITS/ML 10 ML Multi-Dose VIAL ICA SCH (17:30)
[2024-03-09] MEDS ORDERED: Heparin 1,000 UNITS/ML 10 ML Multi-Dose VIAL IV SCH (17:30)
--- NOTE | 2024-03-09 18:31 | NUR ---
Patient alert and oriented to self, situation, and location. Requires reminders on certain medications and when he received them. and sister at bedside throughout the day. Stable on room air. Tolerating food and fluids well. Denies pain. Call light within reach, bed alarm on.
[2024-03-10] VITALS (12 sets, daily range): BP systolic 132–170; BP diastolic 67–92; PULSE 72–76; TEMP 97.5–97.9
--- NOTE | 2024-03-10 08:30 | NUR ---
PT IN BED EATING BREAKFAST. ASSESSMENT DONE, MEDS GIVEN PER ORDER. PT DENIES PAIN. LEFT UPPER ARM FISTULA CLEAN DRY AND INTACT, GAUZE AND TAPE ON SITE. SCATTERED SKIN TEARS NOTED TO BILATERAL UPPER EXTREMITIES. INT TO RIGHT AC PATENT. PT UPDATED ON PLAN FOR DIALYSIS. PT DENIES NEEDS. BED IN LOWEST POSITION, CALL LIGHT IN REACH, BED ALARM ON.
[2024-03-10 11:16] LABS: GRAN # 5.1 K/mm3 (1.4-6.5); GRAN % 89.9 % (42.2-75.2); HEMOGLOBIN 11.8 g/dl (13.5-18.0); LYMPH # 0.2 K/mm3 (1.2-3.4); MEAN CELL VOLUME 105 fl (80.0-100.0); MEAN CORPUSCULAR HEMOGLOBIN 35 pg (27-31); MEAN CORPUSCULAR HGB CONC 34 g/dl (33.0-37.0); MONO # 0.3 K/mm3 (0.1-0.6); MONO % 5.6 % (1.7-9.3); PLATELET COUNT 144 K/mm3 (130-400); RED BLOOD COUNT 3.37 M/mm3 (4.20-5.60); REDCELL DISTRIBUTION WIDTH-CV 15.6 % (11.5-14.5)
[2024-03-10 11:25] LABS: HEMATOCRIT 35.2 % (42.0-52.0)
[2024-03-10 11:28] LABS: CALCIUM 10.1 mg/dL (8.4-10.2); CREATININE, serum 3.84 mg/dL (0.72-1.25); POTASSIUM 3.6 mEq/L (3.5-4.5)
--- NOTE | 2024-03-10 12:38 | NUR ---
Dialysis note pt arrived to unit via bed. uf goa; set for 3.5 kg and 3.5 kg removed. pt tolerated tx well and dcd back to room without complaints.
--- NOTE | 2024-03-10 20:30 | NUR ---
Initial shift assessment done- alert/oriented, VSS, has fistula to LUE, good thrill/bruit.Denies pain/SOB,, states he does have some tingling in his feet tonight. On Fall Risk- understands to call for assistance.
[2024-03-10] MEDS ORDERED: dexAMETHasone 10 MG/ML VIAL IV SCH (21:00)
[2024-03-11] VITALS (8 sets, daily range): BP systolic 135–157; BP diastolic 68–90; PULSE 71–74; TEMP 97.4–97.6
--- NOTE | 2024-03-11 05:57 | NUR ---
No requests, VSS, no urine this shift -pt states he usually does not make any urine ,next Dialysis will ne Wednesday-
[2024-03-11 06:40] LABS: BASO % 0.2 % (0.0-2.0); GRAN # 4.4 K/mm3 (1.4-6.5); GRAN % 88.6 % (42.2-75.2); HEMOGLOBIN 11.4 g/dl (13.5-18.0); LYMPH # 0.2 K/mm3 (1.2-3.4); LYMPH % 4.9 % (20.0-51.0); MEAN CELL VOLUME 104 fl (80.0-100.0); MEAN CORPUSCULAR HEMOGLOBIN 35 pg (27-31); MEAN CORPUSCULAR HGB CONC 33 g/dl (33.0-37.0); MEAN PLATELET VOLUME 10.7 fl (7.4-10.4); MONO # 0.3 K/mm3 (0.1-0.6); MONO % 5.7 % (1.7-9.3); PLATELET COUNT 135 K/mm3 (130-400); REDCELL DISTRIBUTION WIDTH-CV 15.4 % (11.5-14.5)
[2024-03-11 06:41] LABS: HEMATOCRIT 34.4 % (42.0-52.0)
[2024-03-11 07:13] LABS: CALCIUM 9.9 mg/dL (8.4-10.2); CREATININE, serum 5.55 mg/dL (0.72-1.25); POTASSIUM 4.3 mEq/L (3.5-4.5)
--- NOTE | 2024-03-11 09:50 | NUR ---
PT SITTING IN CHAIR UPON ENTERING. ASSESSMENT DONE, MEDS GIVEN PER ORDER. PT DENIES PAIN. INT TO RIGHT AC PATENT. PT REPORTS NO BOWEL MOVEMENT IN DAYS, PRN MIRALAX GIVEN IN ADDITION TO SCHEDULED [place]. LEFT UPPER ARM FISTULA COVERED WITH GAUZE AND TAPE. BILATERAL UPPER EXTREMITIES DRY WITH SCATTERED SKIN TEARS AND ECCHYMOSIS. PT GIVEN ARGELIA CRACKERS PER REQUESTS AND LEGS ELEVATED ON PILLOW IN RECLINER. PT DENIES NEEDS. CALL LIGHT IN REACH, CHAIR ALARM ON
[2024-03-11] MEDS ORDERED: AMOXICILLIN/CLA1 TA1 PO (12:33)
[2024-03-11] MEDS ORDERED: MEDROL 4MG DOSPA4 MG PO (12:33)
[2024-03-11] MEDS ORDERED: PROAIR HFA0.09 MG/AC IH (12:39)
[2024-03-11] MEDS ORDERED: DOXYCYCLINE 10100 MG PO (12:39)
--- NOTE | 2024-03-11 14:05 | NUR ---
IV REMOVED AND DISCHARGE INSTRUCTIONS GIVEN TO PTS WHO VERBALIZED UNDERSTANDING. PT REPORTS FAMILY WILL HELP GET HIM DRESSED AND NOTIFIED TO CALL WHEN FINISHED TO BE ESCORTED OUT.
== END 2024-03-11 14:10 | disposition home health service (06) | DRG 193 ==
LOC: COL.ER 07:18 → MEDICAL 10:55
PROVIDERS: Emergency Medicine; ADMIT Internal Medicine
PROC: 5A1D70Z Performance of Urinary Filtration, Intermittent, Less than 6 Hours Per Day (ICD-10-PCS; principal; 2024-03-08)
DX: J18.9 Pneumonia, unspecified organism (principal); J96.01 Acute respiratory failure with hypoxia; N18.6 End stage renal disease; I13.2 Hypertensive heart and chronic kidney disease with heart failure and with stage 5 chronic kidney disease, or end stage renal disease; I50.22 Chronic systolic (congestive) heart failure; J44.9 Chronic obstructive pulmonary disease, unspecified; Z66 Do not resuscitate; M10.9 Gout, unspecified; E03.9 Hypothyroidism, unspecified; Z20.822 Contact with and (suspected) exposure to COVID-19; E11.22 Type 2 diabetes mellitus with diabetic chronic kidney disease; I08.3 Combined rheumatic disorders of mitral, aortic and tricuspid valves; D64.9 Anemia, unspecified; E87.70 Fluid overload, unspecified; I48.91 Unspecified atrial fibrillation; E11.43 Type 2 diabetes mellitus with diabetic autonomic (poly)neuropathy; K31.84 Gastroparesis; K21.9 Gastro-esophageal reflux disease without esophagitis; J84.10 Pulmonary fibrosis, unspecified; Z99.2 Dependence on renal dialysis; Z95.818 Presence of other cardiac implants and grafts; Z90.89 Acquired absence of other organs; Z79.4 Long term (current) use of insulin; Z79.899 Other long term (current) drug therapy; Z79.890 Hormone replacement therapy; Z79.82 Long term (current) use of aspirin; Z87.891 Personal history of nicotine dependence; Z23 Encounter for immunization
CPT/HCPCS: J0692; J1100; J1644; J1815; J2919; J7030; Q3014

== ENCOUNTER 2024-03-15 18:41 | Emergency (ER) | payer MEDICARE, BC ==
[~2024-03-15] VITALS: Ht 193 cm; Wt 100.0 kg
[~2024-03-15 18:41] MED LIST changes: +AMBIEN 5MG TABLE5 MG PO; +AMOXICILLIN/CLA1 TA1 PO; +DULCOLAX STOOL100 MG PO; +PROAIR HFA0.09 MG/AC IH; +REGLAN 10MG10 MG/TAB PO
[2024-03-15 18:42] VITALS: TEMP 98.1
[2024-03-15 19:08] LABS: HEMATOCRIT 38.2 % (42.0-52.0); HEMOGLOBIN 12.6 g/dl (13.5-18.0); MEAN CELL VOLUME 105 fl (80.0-100.0); MEAN CORPUSCULAR HEMOGLOBIN 35 pg (27-31); MEAN CORPUSCULAR HGB CONC 33 g/dl (33.0-37.0); MEAN PLATELET VOLUME 10.1 fl (7.4-10.4); PLATELET COUNT 129 K/mm3 (130-400); RED BLOOD COUNT 3.63 M/mm3 (4.20-5.60); REDCELL DISTRIBUTION WIDTH-CV 15.2 % (11.5-14.5)
[2024-03-15 19:21] LABS: ALBUMIN 3.7 g/dL (3.4-4.8); BILIRUBIN,TOTAL 0.9 mg/dL (0.2-1.2); CALCIUM 10.8 mg/dL (8.4-10.2); CREATININE, serum 4.4 mg/dL (0.72-1.25); MAGNESIUM 2.2 mg/dL (1.6-2.6); POTASSIUM 3.9 mEq/L (3.5-4.5)
[2024-03-15 19:52] LABS: HYPOCHROMIA 1+; LYMPHOCYTE 8 % (20.0-51.0); NEUTROPHILS 87 % (42.0-75.2)
[2024-03-15 19:53] LABS: ANISOCYTOSIS 1+; PLATELET ESTIMATE DECREASED (NORMAL)
[2024-03-15 21:46] VITALS: BP 151/72; PULSE 66
== END 2024-03-15 21:46 | disposition home or self-care (01) ==
LOC: COL.ER 18:41
PROVIDERS: Emergency Medicine
DX: R53.1 Weakness (principal); I13.2 Hypertensive heart and chronic kidney disease with heart failure and with stage 5 chronic kidney disease, or end stage renal disease; N18.6 End stage renal disease; I50.9 Heart failure, unspecified; Z99.2 Dependence on renal dialysis

== ENCOUNTER 2024-05-30 09:11 | Day surgery (SDC) | payer MEDICARE, BC ==
[~2024-05-30] VITALS: Ht 193 cm; Wt 93.2 kg
[2024-05-30] VITALS (7 sets, daily range): BP systolic 131–149; BP diastolic 67–77; PULSE 64–72; TEMP 97.9
[~2024-05-30 09:11] MED LIST changes: +1/2 NS 1,000 ML IV SCH; +ceFAZolin 2 G in Water For Injection,Sterile 20 ML IV SCH
[2024-05-30] MEDS ORDERED: REGLAN 10MG10 MG/TAB PO (10:13)
[2024-05-30 10:14] LABS: BASO # 0.1 K/mm3 (0.0-0.2); BASO % 0.9 % (0.0-2.0); EOS # 0.3 K/mm3 (0.0-0.7); EOS % 4.3 % (0.0-4.0); GRAN # 4.7 K/mm3 (1.4-6.5); GRAN % 73.3 % (42.2-75.2); HEMOGLOBIN 10.8 g/dl (13.5-18.0); LYMPH # 0.7 K/mm3 (1.2-3.4); LYMPH % 10.2 % (20.0-51.0); MEAN CELL VOLUME 112 fl (80.0-100.0); MEAN CORPUSCULAR HEMOGLOBIN 35 pg (27-31); MEAN CORPUSCULAR HGB CONC 32 g/dl (33.0-37.0); MEAN PLATELET VOLUME 9.6 fl (7.4-10.4); MONO # 0.7 K/mm3 (0.1-0.6); PLATELET COUNT 167 K/mm3 (130-400); RED BLOOD COUNT 3.07 M/mm3 (4.20-5.60); REDCELL DISTRIBUTION WIDTH-CV 15.9 % (11.5-14.5)
[2024-05-30 10:18] LABS: INR 1.2 (0.8-3.0); PROTHROMBIN TIME 13.2 SECONDS (9.7-12.8)
[2024-05-30 10:23] LABS: HEMATOCRIT 34.3 % (42.0-52.0)
[2024-05-30 10:36] LABS: CALCIUM 10.4 mg/dL (8.4-10.2); CREATININE, serum 4.84 mg/dL (0.72-1.25); POTASSIUM 4.3 mEq/L (3.5-4.5)
[2024-05-30] MEDS ORDERED: NS 1,000 ML IV.SOLN. IR SCH (12:23)
[2024-05-30] MEDS ORDERED: Topical Skin Adhesive 1 EACH (1 ML) TOP ONE (12:44)
[2024-05-30] MEDS ORDERED: fentaNYL 50 MCG/ML 2 ML VIAL IV SCH (12:45)
[2024-05-30] MEDS ORDERED: Midazolam 2 MG/2 ML VIAL IV SCH (12:45)
--- NOTE | 2024-05-30 13:31 | NUR ---
Please see merge document for record of BI-V ICD generator change with DR. May. Mac is transferred back to express unit after gen change with DR. May. He is awake, drowsy, pwd with reg and unlabored respirations. Dressing to gen change site is clean, dry and intact, no evidence of bleeding noted. BS report and handoff of care to Lyn LESLIE. Nicky, pt's accompannying him at this time. Call light in reach.
[2024-05-30] MEDS ORDERED: CEPHALEXIN500 M1 PO (13:42)
--- NOTE | 2024-05-30 16:03 | NUR ---
PT TOLERATED RECOVERY PERIOD WELL. VS REMAINED WITHIN NORMAL LIMITS. PT'S CHEST DRESSING REMAINED CLEAN DRY AND INTACT. IV DISCONTINUED. PT ASSISTED TO MAIN LOBBY VIA WHEELCHAIR. PT VERBALIZED UNDERSTANDING OF DISCHARGE INSTRUCTIONS. PT FREE FROM ACUTE CONCERNS AND COMPLAINTS UPON DISCHARGE.
== END 2024-05-30 16:04 | disposition home or self-care (01) ==
LOC: COL.CAR 09:11
PROVIDERS: Internal Medicine Cardiovascular Disease
DX: Z45.02 Encounter for adjustment and management of automatic implantable cardiac defibrillator (principal)
CPT/HCPCS: C1882; J0665-JZ; J0688; J0690; J2250; J3010; J7030